=== PATIENT | female | born 1940 ===

== ENCOUNTER 2017-01-23 11:52 | Day surgery (SDC) | payer MEDICARE, BC ==
[2017-01-23] MEDS ORDERED: LIDOCAINE 2% MDV (20MG/ML) 20ML VIAL IV ONE (14:00)
[2017-01-23] MEDS ORDERED: PROPOFOL 10 MG/ML VIAL IV ONE (14:00)
--- NOTE | 2017-01-24 17:12 | Operative Note ---
DATE OF SURGERY: 01/23/2017 OPERATION: COLONOSCOPY with cold forceps and cold snare polypectomies. PREOPERATIVE DIAGNOSIS: Polyps. POSTOPERATIVE DIAGNOSES: 1. Colon polyps. 2. Sigmoid diverticulosis. 3. Fair prep. PROCEDURE: After informed consent was obtained from the patient, she was placed in the left lateral decubitus position in the endoscopy suite, sedated and monitored by the department of anesthesia. A well-lubricated [id number] colonoscope was inserted into the rectum and advanced to the cecum. The colon was tortuous and redundant. The cecum revealed 3 polyps ranging in size from 5-7 mm all removed in piecemeal fashion with a cold snare with minimal bleeding noted afterwards. The one site was closed with a hemoclip. The remainder of the cecum and ascending colon were unremarkable. At the level of the proximal transverse colon, there was a diminutive polyp removed with a cold forceps. Minimal bleeding was noted at this site. The remainder of the transverse colon, descending colon, sigmoid colon, and rectum were unremarkable other than [id number] sigmoid diverticular changes. Forward and J-turn views of the rectum and anorectum were unrevealing. The endoscope was straightened, the rectal ampulla deflated, and the endoscope was removed. RECOMMENDATIONS: The patient should follow a high-fiber diet and resume her medications. Given her fair prep and polyps, I would recommend a repeat exam in 1 year. As always, thank you for allowing me to participate in the healthcare of your patients. CC: Dr. Jason BATISTA
== END 2017-01-23 14:20 | disposition home or self-care (01) ==
LOC: HOP 11:52
PROVIDERS: ATTEND Internal Medicine Gastroenterology
DX: Z86.010 Personal history of colon polyps (principal); D12.3 Benign neoplasm of transverse colon; I10 Essential (primary) hypertension; E78.00 Pure hypercholesterolemia, unspecified